=== PATIENT | male | born 1975 | race Caucasian/White ===

== ENCOUNTER 2022-07-27 18:41 | Inpatient (IN) ==
[2022-07-27] MEDS ORDERED: IOPAMIDOL 100 ML BOTTLE IV ONE (18:42)
--- NOTE | 2022-07-27 19:15 | Emergency Department Note ---
HPI General Chief complaint: Fever Stated complaint: fevers Time Seen by Provider: 07/27/22 18:57 Source: EMS and old records reviewed Mode of arrival: EMS Limitations: altered mental status History of Present Illness HPI Narrative: Narrative: This patient presents by EMS from [facility] with a complaint of elevated heart rate and fever. Patient has decreased level of consciousness reported to be nonverbal. This is initially reported to be from traumatic brain injury, however after review of records at this has been identified in the past to be from [place]'s disease. Also noted on review of records the patient has a brother who lives in [place] who based on prior note was going to attempt to obtain power of manager vehicle. Phone number for Christopher is [phone]. Due to the late hour he was not contacted regarding this visit. It is noted on review of records that the patient does have a DNR with limited intervention. This paperwork is not available at this admission, only is noted to have been documented on prior visit. Unfortunately facility notes were not included when the patient was transported. EMS does advise the facility suspects patient may have a urinary tract infection as his urine has been malodorous. No additional information is provided. Related Data Home Medications Medication Instructions Recorded Confirmed aripiprazole 10 mg tablet 10 mg PO .AFTERNOON 01/15/19 02/12/22 aripiprazole 15 mg tablet 15 mg PO QAM 01/15/19 02/12/22 ketoconazole 2 % topical cream 1 applic topical QDAY 01/15/19 02/12/22 lorazepam 2 mg tablet 2 mg PO TID 01/15/19 02/12/22 baclofen 10 mg tablet 10 mg PO BID 02/12/22 02/12/22 docusate sodium 100 mg capsule 100 mg PO BID 02/12/22 02/12/22 haloperidol 2 mg tablet 3 mg PO TID 02/12/22 02/12/22 haloperidol lactate 2 mg/mL oral 3 mg PO QHS PRN Agitation 02/12/22 02/12/22 concentrate hydrocortisone 2.5 % topical cream 1 applic topical QMWF 02/12/22 02/12/22 melatonin 10 mg tablet 10 mg PO HS 02/12/22 02/12/22 omeprazole 20 mg capsule,delayed 20 mg PO QDAY 02/12/22 02/12/22 release zolpidem 5 mg tablet 10 mg PO QHS 02/12/22 02/12/22 Previous Rx's Medication Instructions Recorded acetaminophen 650 mg 650 mg PO Q6 PRN fever #30 tabs 07/05/21 tablet,extended release (Tylenol 8 Hour) Allergies Allergy/AdvReac Type Severity Reaction Status Date / Time No Known Drug Allergies Allergy Verified 07/27/22 18:41 Review of Systems ROS ROS Narrative: Narrative: Unable to complete review of services due to patient being altered [facility] Narrative Patient History Narrative: Narrative: Medical/Surgical/Family History All Active Problems Other infective bursitis, left elbow (Acute) COVID-19 (Acute) Fever (Acute) Sepsis (Acute) Viral illness (Acute) Community acquired pneumonia (Acute) Fever of unknown origin (Acute) Social History Alcohol Intake Frequency: holiday/special occasion only Substance Use: does not use Exam Narrative Narrative: Narrative: Vital signs noted General: mild distress. Skin: Warm. Dry. No rash. Normal color. Eyes: PERRL. Mouth: Membranes dry Cardiovascular: Tachycardia. No murmur. Respiratory: No respiratory distress. Breath sounds equal. No wheezing/rales/rhonchi. Gastrointestinal: Abdomen soft. No tenderness. No distention. Normal bowel sounds. No rebound tenderness or guarding. Extremities: No tenderness. No swelling. No erythema. No edema. Neurological: No focal neurological deficits observed. Patient lethargic. Non responsive to verbal stimulus. General Limitations: altered mental status Course Course Course Narrative: The following orders are placed and reviewed by myself: CBC and CHEM panel are obtained White count is noted to be markedly elevated at 19,500 Lactic acid is below 2 Chest x-ray is without acute changes to my review UA is positive, culture is pending. Of note, the urine is noted to be purulent on catheterization for urine sample. Blood cultures are obtained and the patient is started on Zosyn for urinary tract infection On recheck of vital signs patient is noted to have a fever of 101.6. Patient medicated with IV Tylenol and sepsis is considered. Fluid resuscitation is initiated with sepsis and fluid bolus 30 mils per kilogram. Patient discussed with the hospice service for admission of sepsis related to urinary tract infection Vital Signs Vital signs: Vital Signs Temperature 99.0 F 07/27/22 18:41 Pulse Rate 104 H 07/27/22 18:41 Respiratory Rate 20 07/27/22 18:41 Blood Pressure 109/74 07/27/22 18:41 Pulse Oximetry (%) 97 07/27/22 18:41 Oxygen Delivery Method Room Air 07/27/22 18:41 Temperature 101.0 F H 07/27/22 21:43 Pulse Rate 86 07/27/22 22:46 Respiratory Rate 18 07/27/22 23:13 Blood Pressure 103/62 07/27/22 23:01 Pulse Oximetry (%) 100 07/27/22 22:46 Oxygen Delivery Method Room Air 07/27/22 18:41 MDM MDM Narrative Medical decision making narrative: Narrative: Lab Data 07/27/22 19:16 Labs: Lab Results 07/27/22 07/27/22 07/27/22 Range/Units 18:48 19:16 19:20 WBC 19.5 H (4.5-11.0) K/mcL RBC 5.21 (4.63-6.08) M/mcL Hgb 14.3 (13.7-17.5) g/dL Hct 43.3 (40.1-51.0) % POC Hct (41-55) MCV 83.1 (80.0-100.0) fL MCH 27.4 (26.0-34.0) pg MCHC 33.0 (31.0-36.0) g/dL RDW 13.2 (11.5-14.5) % Plt Count 270 (140-440) K/mcL MPV 9.5 (8.8-12.5) fL Immature Gran % (Auto) 0.4 (0.0-0.5) % Neut % (Auto) 80.0 H (38.0-78.0) % Lymph % (Auto) 12.6 L (15.5-49.0) % [place] % (Auto) 6.5 (1.0-12.0) % Eos % (Auto) 0.2 (0.0-7.0) % Baso % (Auto) 0.3 (0.0-2.0) % Lymph # (Auto) 2.46 (1.50-4.80) K/mcL [place] # (Auto) 1.26 H (0.10-0.90) K/mcL Eos # (Auto) 0.03 (0.00-0.70) K/mcL Baso # (Auto) 0.05 (0.00-0.30) K/mcL Immature Gran # 0.07 H (0.00-0.05) K/mcl Absolute Neutrophils 15.63 H (1.80-8.00) K/mcL POC VBG pH 7.41 (7.32-7.42) POC VBG pCO2 at Temp 40.3 L (41-51) POC VBG pO2 25 (25-40) POC VBG HCO3 25.7 (24-28) POC VBG Total CO2 27.0 (25-29) POC Venous O2 Sat 47.0 (40-70) POC VBG Base Excess 1.0 (-2-2) VBG Lactic Acid 0.6 (0.5-2) POC Sodium (133-145) POC Potassium (3.3-5.1) POC Chloride (96-108) POC Total CO2 (22-30) POC BUN (6-20) POC Creatinine (0.6-1.2) POC Glucose (70-105) POC WB Ioniz Calcium (1.16-1.32) Urine Color Yellow Urine Appearance Hazy A (Clear) Urine pH 5.0 (5.0-9.0) Ur Specific [place] 1.033 (1.000-1.035) Urine Protein 100 A (Negative) mg/dL Urine Glucose (UA) Negative (Negative) mg/dL Urine Ketones 20 A (Negative) mg/dL Urine Occult Blood 0.20 (Negative) mg/dL Urine Nitrate Pos A (Negative) Urine Bilirubin Negative (Negative) mg/dL Urine Urobilinogen 2.0 A mg/dL Ur Leukocyte Esterase 250 A (Negative) /uL Urine RBC 4 H (0-3) /hpf Urine WBC 125 H (0-4) /hpf Ur Squamous Epith Cells 0 (0-4) /hpf Urine Bacteria Many A (0) /hpf Ur Culture Indicated? yes 07/27/22 Range/Units 20:24 WBC (4.5-11.0) K/mcL RBC (4.63-6.08) M/mcL Hgb (13.7-17.5) g/dL Hct (40.1-51.0) % POC Hct 45.0 (41-55) MCV (80.0-100.0) fL MCH (26.0-34.0) pg MCHC (31.0-36.0) g/dL RDW (11.5-14.5) % Plt Count (140-440) K/mcL MPV (8.8-12.5) fL Immature Gran % (Auto) (0.0-0.5) % Neut % (Auto) (38.0-78.0) % Lymph % (Auto) (15.5-49.0) % [place] % (Auto) (1.0-12.0) % Eos % (Auto) (0.0-7.0) % Baso % (Auto) (0.0-2.0) % Lymph # (Auto) (1.50-4.80) K/mcL [place] # (Auto) (0.10-0.90) K/mcL Eos # (Auto) (0.00-0.70) K/mcL Baso # (Auto) (0.00-0.30) K/mcL Immature Gran # (0.00-0.05) K/mcl Absolute Neutrophils (1.80-8.00) K/mcL POC VBG pH (7.32-7.42) POC VBG pCO2 at Temp (41-51) POC VBG pO2 (25-40) POC VBG HCO3 (24-28) POC VBG Total CO2 (25-29) POC Venous O2 Sat (40-70) POC VBG Base Excess (-2-2) VBG Lactic Acid (0.5-2) POC Sodium 137 (133-145) POC Potassium 3.6 (3.3-5.1) POC Chloride 99 (96-108) POC Total CO2 27.0 (22-30) POC BUN 12 (6-20) POC Creatinine 1.1 (0.6-1.2) POC Glucose 106 H (70-105) POC WB Ioniz Calcium 1.10 L (1.16-1.32) Urine Color Urine Appearance (Clear) Urine pH (5.0-9.0) Ur Specific [place] (1.000-1.035) Urine Protein (Negative) mg/dL Urine Glucose (UA) (Negative) mg/dL Urine Ketones (Negative) mg/dL Urine Occult Blood (Negative) mg/dL Urine Nitrate (Negative) Urine Bilirubin (Negative) mg/dL Urine Urobilinogen mg/dL Ur Leukocyte Esterase (Negative) /uL Urine RBC (0-3) /hpf Urine WBC (0-4) /hpf Ur Squamous Epith Cells (0-4) /hpf Urine Bacteria (0) /hpf Ur Culture Indicated? Discharge Plan Patient/Caregiver Discharge Instructions Pt seen by J[employer]RNAL[employer] INTERN/PA only: Yes Prescriptions: No Action aripiprazole 15 mg tablet 15 mg PO QAM aripiprazole 10 mg tablet 10 mg PO .AFTERNOON lorazepam 2 mg tablet 2 mg PO TID ketoconazole 2 % cream 1 applic TOPICAL QDAY acetaminophen [Tylenol 8 Hour] 650 mg tablet extended release 650 mg PO Q6 PRN (Reason: fever) Qty: 30 0RF baclofen 10 mg Tablet 10 mg PO BID docusate sodium 100 mg Capsule 100 mg PO BID omeprazole 20 mg Capsule,Delayed Release(Dr/Ec) 20 mg PO QDAY hydrocortisone 2.5 % Cream 1 applic TOPICAL QMWF zolpidem 5 mg Tablet 10 mg PO QHS haloperidol 2 mg Tablet 3 mg PO TID melatonin 10 mg Tablet 10 mg PO HS haloperidol lactate [Haloperidol Intensol] 2 mg/mL Concentrate 3 mg PO QHS PRN (Reason: Agitation)
[2022-07-27 19:27] LABS: Appearance,Urine HAZY (Clear); Bacteria,Urine MANY /hpf (0); Bilirubin,Urine Negative (Negative); Color,Urine Yellow; Culture Indicated,Urine yes; Glucose,Urine (UA) Negative (Negative); Ketones,Urine 20 mg/dL (Negative); Leukocyte Esterase,Urine 250 /uL (Negative); Nitrate,Urine POS (Negative); Protein,Urine 100 mg/dL (Negative); Specific Gravity,Urine 1.033 (1.000-1.035); Urine RBC 4 /hpf (0-3); Urine Squamous Epithelial Cell 0 /hpf (0-4); Urine WBC 125 /hpf (0-4)
[2022-07-27 19:47] LABS: Basophils # (Auto) 0.05 K/mcL (0.00-0.30); Basophils % (Auto) 0.3 % (0.0-2.0); Eosinophils # (Auto) 0.03 K/mcL (0.00-0.70); Eosinophils % (Auto) 0.2 % (0.0-7.0); Hematocrit 43.3 % (40.1-51.0); Hemoglobin 14.3 g/dL (13.7-17.5); Lymphocytes # (Auto) 2.46 K/mcL (1.50-4.80); Lymphocytes % (Auto) 12.6 % (15.5-49.0); Mean Cell Volume 83.1 fL (80.0-100.0); Mean Platelet Volume 9.5 fL (8.8-12.5); Monocytes # (Auto) 1.26 K/mcL (0.10-0.90); Monocytes % (Auto) 6.5 % (1.0-12.0); Platelet Count 270 K/mcL (140-440); RBC 5.21 M/mcL (4.63-6.08); Red Cell Distribution Width 13.2 % (11.5-14.5); WBC 19.5 K/mcL (4.5-11.0)
[2022-07-27 20:29] LABS: POC Calcium, Ionized 1.1 (1.16-1.32); POC Creatinine 1.1 (0.6-1.2); POC Potassium 3.6 (3.3-5.1)
[2022-07-27] MEDS ORDERED: 0.9 % SODIUM CHLORIDE 2,330 ML IV ONE (20:41)
[2022-07-27] MEDS ORDERED: cefTRIAXone 2 GM in DEXTROSE 5% IN WATER 50 ML IV ONE (20:42)
[2022-07-27] MEDS ORDERED: ACETAMINOPHEN 1,000 MG/100 ML BAG IV ONE (22:29)
--- NOTE | 2022-07-28 02:13 | XRay Report ---
CLINICAL INFORMATION: Fever COMPARISON: 07/24/2022 TECHNIQUE: Portable FINDINGS: The heart size, mediastinum and pulmonary vessels are unremarkable. The lungs are clear. There are no effusions. The bones and soft tissues are within normal limits. IMPRESSION: Normal chest. Interpreted and Authenticated by: Johnny Condon 07/28/22
--- NOTE | 2022-07-28 02:43 | Cat Scan Report ---
CLINICAL INFORMATION: Fever COMPARISON: None. TECHNIQUE: Following enteric contrast, 80 cc of Isovue-370 were injected intravenously, and 60 seconds later, 0.625 mm helical slices were obtained from the mid heart through the subtrochanteric regions. Following reconstruction, 2.5 mm sagittal, coronal and axial reformatted images were processed and reviewed at bone, lung and soft tissue windows. Five minutes later, 0.625 mm helical slices were obtained from the mid heart through the kidneys and viewed at soft tissue windows.The exam was performed using radiation dose optimization techniques including, but not limited to, automated exposure control, adjustment of the mA and/or kV according to patient size and use of iterative reconstruction technique. FINDINGS: The lung bases show subsegmental atelectasis. No effusions. The visualized heart is grossly normal. Abdominal images show the gallbladder and bile ducts, liver, both kidneys, adrenal glands, spleen, pancreas and aorta, including aortic branches, are normal in size, configuration and attenuation without focal lesion. There is no free air, free fluid or adenopathy. Pelvic images show mild prostate enlargement (5.6 x 3.3 cm). In addition, there is patchy inhomogeneous enhancement of the central zone with edema in the peripheral zone suggesting prostatitis. There is also moderate diffuse wall thickening of urinary bladder suggesting cystitis.. The stomach, small bowel, appendix region and large bowel are grossly normal. Bone windows show no osseous abnormality IMPRESSION: Mild prostate enlargement inhomogeneous enhancement suggesting prostatitis. Diffuse wall thickening urinary bladder suggests the possibility of cystitis. Please correlate with urinalysis and also prostate tenderness on digital rectal exam. Interpreted and Authenticated by: Johnny Condon 07/28/22
[2022-07-28] MEDS ORDERED: ONDANSETRON 4 MG/2 ML VIAL IV PRN (08:05)
[2022-07-28] MEDS ORDERED: POLYETHYLENE GLYCOL 3350 17 GM PACKET PO PRN (08:05)
[2022-07-28] MEDS ORDERED: MAGNESIUM SULFATE 2 GM/50 ML BAG IV PRN (08:05)
[2022-07-28] MEDS ORDERED: POTASSIUM CHLORIDE 40 MEQ in DEXTROSE 5% IN WATER 500 ML IV PRN (08:05)
[2022-07-28] MEDS ORDERED: POTASSIUM CHLORIDE 20 MEQ TABLET PO PRN ×2 (08:05)
[2022-07-28] MEDS ORDERED: SENNOSIDES 1 TABLET PO PRN (08:05)
[2022-07-28] MEDS ORDERED: IPRATROPIUM/ALBUTEROL 3 ML AMPUL.NEB NEB PRN (08:05)
--- NOTE | 2022-07-28 08:05 | Internal Med History&Physical ---
HPI History of Present Illness Patient information: Note initiated : 07/28/22 at 7:59 am Service Date, if different from initiated Date: [] Patient: Devonte Vizcaino 46 y/o M admitted on 07/28/22 for fevers. Chief Complaint: [] History of present illness: Mr. 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 Presents from [facility]. Also reported to have decreased level of consciousness. Patient has a history of traumatic brain injury and is essentially nonverbal at baseline. Also reported that his urine is malodorous. In the ED his work-up was positive for urinary tract infection with sepsis. Patient was started on IV antibiotics and IV fluids. He was tachycardic in the ED. He had a white blood cell count of 19,000. He also developed a fever of 101.6. Patient is still quite altered compared to baseline. Review of systems: Unable to obtain as patient is nonverbal and is essentially baseline PHYSICAL EXAM General: Alert, Awake, No acute Distress Eyes/N/T: EOMI, no scleral icterus, PERRL,dry MM Head/Neck: neck supple, full ROM, normocephalic atraumatic CV: Tachycardic but regular, No murmurs, normal s1/s2 Pulm: Clear b/l, no wheezing/rhonchi/rales, no respiratory distress Abd: soft, nontender, +BS x4 Ext: no clubbing/cyanosis/edema, nontender Neuro: Alert, makes eye contact, follows some simple comands, nonverbal, moves UE's spontaneously, does not move LE's Psychiatric: Skin: warm/dry, normal color PFSH PFSH All Active Problems (Updated 07/28/22 @ 00:44 by Background Datucker) Other infective bursitis, left elbow (Acute) COVID-19 (Acute) Fever (Acute) Sepsis (Acute) Viral illness (Acute) Community acquired pneumonia (Acute) Fever of unknown origin (Acute) Sepsis (Acute) Acute UTI (Acute) Social History (Updated 01/15/19 @ 12:38 by Chandrika Calvin PA-C) smoking status: Current some day smoker alcohol intake frequency: holiday/special occasion only substance use type: does not use MEDS/ALLERGIES Home Medications and Allergies Home Medications Medication Instructions Recorded Confirmed Type aripiprazole 10 mg tablet 10 mg PO .AFTERNOON 01/15/19 07/28/22 History aripiprazole 15 mg tablet 15 mg PO QAM 01/15/19 07/28/22 History ketoconazole 2 % topical cream 1 applic topical QDAY 01/15/19 07/28/22 History lorazepam 2 mg tablet 2 mg PO TID 01/15/19 07/28/22 History acetaminophen 650 mg 650 mg PO Q6 PRN fever #30 tabs 07/05/21 07/28/22 Rx tablet,extended release (Tylenol 8 Hour) baclofen 10 mg tablet 10 mg PO BID 02/12/22 07/28/22 History docusate sodium 100 mg capsule 100 mg PO BID 02/12/22 07/28/22 History haloperidol 2 mg tablet 3 mg PO TID 02/12/22 07/28/22 History haloperidol lactate 2 mg/mL oral 3 mg PO QHS PRN Agitation 02/12/22 07/28/22 History concentrate hydrocortisone 2.5 % topical cream 1 applic topical QMWF 02/12/22 07/28/22 History melatonin 10 mg tablet 10 mg PO HS 02/12/22 07/28/22 History omeprazole 20 mg capsule,delayed 20 mg PO QAMAC 02/12/22 07/28/22 History release zolpidem 5 mg tablet 10 mg PO QHS 02/12/22 07/28/22 History guaifenesin 100 mg/5 mL oral 100 - 200 mg PO Q4H PRN Cough 07/28/22 07/28/22 History liquid (Tussin Mucus-Chest Congestion) trazodone 100 mg tablet 200 mg PO QHS 07/28/22 07/28/22 History Allergies Allergy/AdvReac Type Severity Reaction Status Date / Time No Known Drug Allergies Allergy Verified 07/27/22 18:41 EXAM Constitutional Vitals: Temp Pulse Resp BP Pulse Ox O2 Del Method 99.4 F H 81 19 91/66 99 Room Air 07/28/22 04:00 07/28/22 06:00 07/28/22 06:00 07/28/22 06:00 07/28/22 06:00 07/28/22 04:41 DATA Data Completed and Pending Labs: Labs from last 24 hours 07/27/22 07/27/22 07/27/22 20:24 19:20 19:16 WBC 19.5 H RBC 5.21 Hgb 14.3 Hct 43.3 POC Hct 45.0 MCV 83.1 MCH 27.4 MCHC 33.0 RDW 13.2 Plt Count 270 MPV 9.5 Immature Gran % (Auto) 0.4 Neut % (Auto) 80.0 H Lymph % (Auto) 12.6 L [place] % (Auto) 6.5 Eos % (Auto) 0.2 Baso % (Auto) 0.3 Lymph # (Auto) 2.46 [place] # (Auto) 1.26 H Eos # (Auto) 0.03 Baso # (Auto) 0.05 Immature Gran # 0.07 H Absolute Neutrophils 15.63 H POC VBG pH 7.41 POC VBG pCO2 at Temp 40.3 L POC VBG pO2 25 POC VBG HCO3 25.7 POC VBG Total CO2 27.0 POC Venous O2 Sat 47.0 POC VBG Base Excess 1.0 VBG Lactic Acid 0.6 POC Sodium 137 POC Potassium 3.6 POC Chloride 99 POC Total CO2 27.0 POC BUN 12 POC Creatinine 1.1 POC Glucose 106 H POC WB Ioniz Calcium 1.10 L Urine Color Urine Appearance Urine pH Ur Specific [place] Urine Protein Urine Glucose (UA) Urine Ketones Urine Occult Blood Urine Nitrate Urine Bilirubin Urine Urobilinogen Ur Leukocyte Esterase Urine RBC Urine WBC Ur Squamous Epith Cells Urine Bacteria Ur Culture Indicated? 07/27/22 18:48 WBC RBC Hgb Hct POC Hct MCV MCH MCHC RDW Plt Count MPV Immature Gran % (Auto) Neut % (Auto) Lymph % (Auto) [place] % (Auto) Eos % (Auto) Baso % (Auto) Lymph # (Auto) [place] # (Auto) Eos # (Auto) Baso # (Auto) Immature Gran # Absolute Neutrophils POC VBG pH POC VBG pCO2 at Temp POC VBG pO2 POC VBG HCO3 POC VBG Total CO2 POC Venous O2 Sat POC VBG Base Excess VBG Lactic Acid POC Sodium POC Potassium POC Chloride POC Total CO2 POC BUN POC Creatinine POC Glucose POC WB Ioniz Calcium Urine Color Yellow Urine Appearance Hazy A Urine pH 5.0 Ur Specific [place] 1.033 Urine Protein 100 A Urine Glucose (UA) Negative Urine Ketones 20 A Urine Occult Blood 0.20 Urine Nitrate Pos A Urine Bilirubin Negative Urine Urobilinogen 2.0 A Ur Leukocyte Esterase 250 A Urine RBC 4 H Urine WBC 125 H Ur Squamous Epith Cells 0 Urine Bacteria Many A Ur Culture Indicated? yes A/P Narrative A/P Narrative: A: *UTI: *Sepsis(tachycardia/fever/leukocytosis): *Encephalopathy acute on chronic: 2/2 above *Generalized weakness/deconditioning/debility: *Tracie's disease: *Generalized weakness/deconditioning/debility: Patient wheelchair-bound at baseline *Hypophosphatemia: *Bipolar d/o: *GERD: P: -IV antibiotics, pending BC/UC -IVF -monitor uop, renal fxn, trend and replace eletrolytes -[place] for accurate i/o -f/u lab work -cont home baclofen/psych -PT/OT -CM for placement needs -ppx: Lovenox / home ppi DNR/DNI Time Spent With Patient Time: Total time spent is greater than 50% in coordination of care (as documented) at patient's floor/unit and/or counseling patient: Initial: Total time with patient: 75 - 90 minutes QUALITY VTE Deep Vein Thrombosis/Pulmonary Embolism Present on Admission: No
[2022-07-28] MEDS ORDERED: cefTRIAXone 1 GM in DEXTROSE 5% IN WATER 50 ML IV SCH (08:15)
[2022-07-28] MEDS ORDERED: 0.9 % SODIUM CHLORIDE 1,000 ML IV SCH (08:15)
[2022-07-28] MEDS: DOCUSATE SODIUM 100 MG CAPSULE PO SCH ×2 (08:29→20:14)
[2022-07-28] MEDS: cefTRIAXone 1 GM VIAL IV SCH (08:29)
[2022-07-28] MEDS: ACETAMINOPHEN 325 MG TABLET PO PRN (08:29)
[2022-07-28 09:10] LABS: Hemoglobin 13.3 g/dL (13.7-17.5); Mean Cell Volume 83.8 fL (80.0-100.0); Mean Corpuscular HGB Conc 32.4 g/dL (31.0-36.0); Mean Platelet Volume 9.4 fL (8.8-12.5); Platelet Count 260 K/mcL (140-440); RBC 4.89 M/mcL (4.63-6.08); Red Cell Distribution Width 13.2 % (11.5-14.5); WBC 17.7 K/mcL (4.5-11.0)
[2022-07-28 09:32] LABS: ALT/SGPT 15 U/L (<40); AST/SGOT 50 U/L (<40); Albumin 3.1 gm/dL (3.2-5.2); Alkaline Phosphatase 76 U/L (39-117); Bilirubin,Direct < 0.2 mg/dL (0-0.3); Bilirubin,Total 0.5 mg/dL (0.1-1.0); Blood Urea Nitrogen 10 mg/dL (6-20); Calcium 7.9 mg/dL (8.6-10.4); Carbon Dioxide 25 mmol/L (22-30); Chloride 104 mmol/L (96-108); Globulin 3.2 gm/dL (2.2-3.7); Glomerular Filtration Rate 108; Glucose 91 mg/dL (70-105); Lactate Dehydrogenase 181 U/L (135-225); Phosphorous 1.6 mg/dL (2.5-4.5); Triglycerides 42 mg/dL (<150); Uric Acid 3.2 mg/dL (2.5-8.0)
[2022-07-28 09:46] LABS: Eosinophils % (Manual) 2 % (0-7); Lymphocytes % 8 % (15-49); Monocytes % (Manual) 3 % (1-12); Platelet Estimate NORMAL (Normal); RBC Morphology NORMAL (Normal); Segmented Neutrophils % 87 % (38-78)
[2022-07-28] MEDS: NEUTRA PHOS 1 PACKET PO SCH ×2 (10:21→20:13)
[2022-07-28] MEDS: PHOSPHORUS 250 MG TABLET PO SCH ×2 (10:22→20:14)
[2022-07-28] MEDS: BACLOFEN 10 MG TABLET PO SCH ×2 (10:22→20:13)
[2022-07-28] MEDS: LORazepam 1 MG TABLET PO SCH ×3 (10:22→20:13)
[2022-07-28] MEDS: ARIPIPRAZOLE 5 MG TABLET PO SCH ×2 (10:22→14:43)
[2022-07-28] MEDS: HALOPERIDOL 1 MG TABLET PO SCH ×2 (14:43→20:14)
[2022-07-28] MEDS: 0.9 % SODIUM CHLORIDE 10 ML SYRINGE IV SCH ×2 (14:43→20:57)
[2022-07-28] MEDS: ZOLPIDEM 5 MG TABLET PO SCH (20:13)
[2022-07-28] MEDS: traZODone HCL 100 MG TABLET PO SCH (20:13)
[2022-07-28] MEDS: MELATONIN 3 MG TABLET PO SCH (20:14)
[2022-07-28] MEDS ORDERED: HALOPERIDOL 1 MG TABLET PO PRN (21:00)
[2022-07-29] MEDS: 0.9 % SODIUM CHLORIDE 10 ML SYRINGE IV SCH ×3 (06:13→20:32)
[2022-07-29 07:10] LABS: Basophils # (Auto) 0.05 K/mcL (0.00-0.30); Basophils % (Auto) 0.5 % (0.0-2.0); Eosinophils # (Auto) 0.27 K/mcL (0.00-0.70); Eosinophils % (Auto) 2.7 % (0.0-7.0); Hematocrit 42.7 % (40.1-51.0); Hemoglobin 13.8 g/dL (13.7-17.5); Lymphocytes # (Auto) 1.48 K/mcL (1.50-4.80); Lymphocytes % (Auto) 14.8 % (15.5-49.0); Mean Cell Volume 86.4 fL (80.0-100.0); Mean Corpuscular HGB Conc 32.3 g/dL (31.0-36.0); Mean Platelet Volume 9.7 fL (8.8-12.5); Neutrophils % (Auto) 75.7 % (38.0-78.0); Platelet Count 227 K/mcL (140-440); RBC 4.94 M/mcL (4.63-6.08); Red Cell Distribution Width 13.2 % (11.5-14.5)
--- NOTE | 2022-07-29 07:38 | Internal Med Progress Note ---
SUBJECTIVE Subjective Patient information: Note initiated : 07/29/22 at 7:35 am Service Date, if different from initiated Date: [] Patient: Devonte Vizcaino 46 y/o M admitted on 07/28/22 for fevers. Chief Complaint: [] Interval history: History of present illness: Mr. Vizcaino is a 46 year old M Male with [place]'s disease presents to the ED with fevers tachycardia and altered mental status. Presents from [facility]. Also reported to have decreased level of consciousness. Patient has a history of traumatic brain injury and is essentially nonverbal at baseline. Also reported that his urine is malodorous. In the ED his work-up was positive for urinary tract infection with sepsis. Patient was started on IV antibiotics and IV fluids. He was tachycardic in the ED. He had a white blood cell count of 19,000. He also developed a fever of 101.6. Patient is still quite altered compared to baseline. 07/29 No overnight events. Patient nonverbal. Last fever was yesterday morning with max temperatures overnight at 99.5. Leukocytosis resolved. Hypophosphatemia. Review of systems: Unable to obtain as patient is nonverbal and is essentially baseline PHYSICAL EXAM General: Alert, Awake, No acute Distress Eyes/N/T: EOMI, no scleral icterus, Head/Neck: neck supple, full ROM, CV: Mildly tachycardic but regular, No murmurs, Pulm: Clear b/l, no wheezing/rhonchi/rales, no respiratory distress Abd: soft, nontender, +BS x4 Ext: no clubbing/cyanosis/edema, nontender Neuro: Alert, makes eye contact, follows some simple comands, nonverbal, moves UE's spontaneously, does not move LE's Psychiatric: Skin: warm/dry, normal color Constitutional Vitals: Vital Signs Temp Pulse Resp BP Pulse Ox O2 Del Method 99.5 F H 81 21 121/89 93 Room Air 07/29/22 03:42 07/28/22 19:52 07/29/22 03:42 07/28/22 19:52 07/28/22 19:52 07/28/22 19:52 Period Temp Pulse Resp BP Sys/Draper Pulse Ox O2 Del Method O2 Flow Rate Last 24 Hr 98.9 F-101.4 F 65-99 13-25 98-122/64-89 92-96 Room Air Intake and Output 07/28/22 07/29/22 07/29/22 19:59 03:59 11:59 Intake Total 120 1000 Output Total 263 925 Balance -143 75 Weight 76.612 kg Intake & Output: Intake & Output 07/28/22 07/29/22 07/29/22 19:59 03:59 11:59 Intake Total 120 1000 Output Total 263 925 Balance -143 75 Weight 76.612 kg Intake: IV 1000 Sodium Chloride 0.9% 1,000 ml @ 1000 75 mls/hr IV .[id number] [facility] Rx#: [id number] Oral 120 Output: Urine Catheter Amount 263 250 Void Amount 675 Other: Meal Lunch Percent of Meal Consumed 50% Feeding Ability Total Assistance Urine Appearance Cloudy Clear Uretheral ([place]) Clear Urine Color [place] Yellow Uretheral ([place]) Yellow Urine Odor Normal Normal OBJ DATA Labs 07/29/22 05:47 07/28/22 08:36 Labs: Abnormal Lab Results 07/29/22 07/28/22 07/28/22 05:47 08:36 08:36 WBC 17.7 H Hgb 13.3 L Neut % (Auto) Lymph % (Auto) 14.8 L Lymph # (Auto) 1.48 L [place] # (Auto) Seg Neutrophils % 87 H Lymphocytes % 8 L Immature Gran # Absolute Neutrophils POC VBG pCO2 at Temp Anion Gap 7.0 L POC Glucose Calcium 7.9 L POC WB Ioniz Calcium Phosphorus 1.6 L AST 50 H Albumin 3.1 L Urine Appearance Urine Protein Urine Ketones Urine Nitrate Urine Urobilinogen Ur Leukocyte Esterase Urine RBC Urine WBC Urine Bacteria 07/27/22 07/27/22 07/27/22 20:24 19:20 19:16 WBC 19.5 H Hgb Neut % (Auto) 80.0 H Lymph % (Auto) 12.6 L Lymph # (Auto) [place] # (Auto) 1.26 H Seg Neutrophils % Lymphocytes % Immature Gran # 0.07 H Absolute Neutrophils 15.63 H POC VBG pCO2 at Temp 40.3 L Anion Gap POC Glucose 106 H Calcium POC WB Ioniz Calcium 1.10 L Phosphorus AST Albumin Urine Appearance Urine Protein Urine Ketones Urine Nitrate Urine Urobilinogen Ur Leukocyte Esterase Urine RBC Urine WBC Urine Bacteria 07/27/22 18:48 WBC Hgb Neut % (Auto) Lymph % (Auto) Lymph # (Auto) [place]cdonald # (Auto) Seg Neutrophils % Lymphocytes % Immature Gran # Absolute Neutrophils POC VBG pCO2 at Temp Anion Gap POC Glucose Calcium POC WB Ioniz Calcium Phosphorus AST Albumin Urine Appearance Hazy A Urine Protein 100 A Urine Ketones 20 A Urine Nitrate Pos A Urine Urobilinogen 2.0 A Ur Leukocyte Esterase 250 A Urine RBC 4 H Urine WBC 125 H Urine Bacteria Many A Meds: Medications Acetaminophen (Acetaminophen 325 Mg Tablet) 650 mg PO Q6HP PRN; Protocol PRN Reason: Per Pain Protocol/Fever > 101 Last Admin: 07/28/22 08:29 Dose: 650 mg Albuterol/Ipratropium (Ipratropium/Albuterol 3 Ml Ampul.Neb) 3 ml NEB Q4HP PRN PRN Reason: Shortness Of Breath Baclofen (Baclofen 10 Mg Tablet) [address] [facility] Last Admin: 07/28/22 20:13 Dose: 10 mg Ceftriaxone Sodium (Ceftriaxone 1 Gm Vial) [address] [facility] Last Admin: 07/28/22 08:29 Dose: 1 gm Docusate Sodium (Docusate Sodium 100 Mg Capsule) [address] [facility] Last Admin: 07/28/22 20:14 Dose: 100 mg Haloperidol (Haloperidol 1 Mg Tablet) [address] [facility] Last Admin: 07/28/22 20:14 Dose: 3 mg Haloperidol (Haloperidol 1 Mg Tablet) 3 mg PO HSP PRN PRN Reason: Agitation Potassium Chloride 40 meq/ (Dextrose) 520 mls @ 130 mls/hr IV UD PRN PRN Reason: Potassium < 3 Magnesium Sulfate (Magnesium Sulfate) 2 gm in 50 mls @ 50 mls/hr IV UD PRN PRN Reason: Magnesium </= 1.6 Lorazepam (Lorazepam 1 Mg Tablet) [address] [facility] Last Admin: 07/28/22 20:13 Dose: 1 mg Melatonin (Melatonin 3 Mg Tablet) [address] [facility] Last Admin: 07/28/22 20:14 Dose: 9 mg Omeprazole (Omeprazole 20 Mg Capsule) [address] [facility] Ondansetron HCl (Ondansetron 4 Mg/2 Ml Vial) 4 mg IV Q4HP PRN PRN Reason: Nausea And Vomiting Polyethylene Glycol (Polyethylene Glycol 3350 17 Gm Packet) 17 gm PO DAILYP PRN PRN Reason: Constipation Potassium Chloride (Potassium Chloride 20 Meq Tablet) 40 meq PO UD PRN PRN Reason: Potssium is 3-3.5 Potassium Chloride (Potassium Chloride 20 Meq Tablet) 40 meq PO UD PRN PRN Reason: Potassium < 3 Senna (Sennosides 1 Tablet) 2 tab PO DAILYP PRN PRN Reason: Constipation Sodium Chloride (0.9 % Sodium Chloride 10 Ml Syringe) [address] [facility] Last Admin: 07/29/22 06:13 Dose: 10 ml Trazodone HCl (Trazodone Hcl 100 Mg Tablet) [address] [facility] Last Admin: 07/28/22 20:13 Dose: 200 mg Zolpidem Tartrate (Zolpidem 5 Mg Tablet) [address] [facility] Last Admin: 07/28/22 20:13 Dose: 10 mg A/P Narrative A/P Narrative: A: *UTI( )complicated: *Sepsis(tachycardia/fever/leukocytosis): -fever curve improving, leukcytosis improving *Encephalopathy acute on chronic: 2/2 above *Graton's disease: *Generalized weakness/deconditioning/debility: Patient wheelchair-bound at baseline *Hypophosphatemia: *Bipolar d/o: *GERD: P: -IV antibiotics, pending BC/UC -IVF d.c -monitor uop, renal fxn, trend and replace eletrolytes -[place] for accurate i/o -monitor cbc/chem -cont home baclofen/psych -PT/OT -CM for placement needs -ppx: Lovenox / home ppi Time Spent With Patient Time: Total time spent is greater than 50% in coordination of care (as documented) at patient's floor/unit and/or counseling patient: Subsequent: Total time with patient: 35 - 49 minutes QUALITY VTE Deep Vein Thrombosis/Pulmonary Embolism Present on Admission: No
[2022-07-29 07:47] LABS: ALT/SGPT 15 U/L (<40); AST/SGOT 36 U/L (<40); Albumin 3.1 gm/dL (3.2-5.2); Albumin/Globulin Ratio 0.9 (1.0-2.3); Alkaline Phosphatase 84 U/L (39-117); Bilirubin,Direct < 0.2 mg/dL (0-0.3); Bilirubin,Total 0.4 mg/dL (0.1-1.0); Blood Urea Nitrogen 9 mg/dL (6-20); Calcium 8.2 mg/dL (8.6-10.4); Carbon Dioxide 25 mmol/L (22-30); Chloride 103 mmol/L (96-108); Globulin 3.3 gm/dL (2.2-3.7); Glomerular Filtration Rate 114; Glucose 94 mg/dL (70-105); Lactate Dehydrogenase 210 U/L (135-225); Phosphorous 2.2 mg/dL (2.5-4.5); Triglycerides 68 mg/dL (<150)
[2022-07-29] MEDS: OMEPRAZOLE 20 MG CAPSULE PO SCH (07:58)
[2022-07-29] MEDS: cefTRIAXone 1 GM VIAL IV SCH (10:06)
[2022-07-29] MEDS: NEUTRA PHOS 1 PACKET PO SCH ×2 (10:06→20:30)
[2022-07-29] MEDS: LORazepam 1 MG TABLET PO SCH ×3 (10:07→20:31)
[2022-07-29] MEDS: PHOSPHORUS 250 MG TABLET PO SCH ×2 (10:07→20:30)
[2022-07-29] MEDS: HALOPERIDOL 1 MG TABLET PO SCH ×3 (10:07→20:31)
[2022-07-29] MEDS: DOCUSATE SODIUM 100 MG CAPSULE PO SCH ×2 (10:07→20:31)
[2022-07-29] MEDS: ARIPIPRAZOLE 5 MG TABLET PO SCH ×2 (10:07→14:31)
[2022-07-29] MEDS: BACLOFEN 10 MG TABLET PO SCH ×2 (10:08→20:31)
--- NOTE | 2022-07-29 11:52 | Discharge Summary ---
Discharge Provider Provider IMPORTANT FOLLOW-UP INFORMATION FOR PCP: Patient information: Note initiated : 07/29/22 at 11:50 am Service Date, if different from initiated Date: [] Patient: Devonte Vizcaino 46 y/o M admitted on 07/28/22 for fevers. Chief Complaint: [] Date of admission: 07/28/22 08:38 Discharge date: 07/30/22 Primary care physician: PCP No Consults: 07/27/22 Consult to Physician [CONS] Stat Comment: Consulting Provider: Eddie Myers Reason For Exam: Physician to Consult COURSE Hospital Course Hospital course: Interval history: History of present illness: Mr. Vizcaino is a 46 year old M Male with [place]'s disease presents to the ED with fevers tachycardia and altered mental status. Presents from [facility]. Also reported to have decreased level of consciousness. Patient has a history of traumatic brain injury and is essentially nonverbal at baseline. Also reported that his urine is malodorous. In the ED his work-up was positive for urinary tract infection with sepsis. Patient was started on IV antibiotics and IV fluids. He was tachycardic in the ED. He had a white blood cell count of 19,000. He also developed a fever of 101.6. Patient is still quite altered compared to baseline. 3/5 No overnight events. Patient nonverbal. Last fever was yesterday morning with max temperatures overnight at 99.5. Leukocytosis resolved. Hypophosphatemia. 3/6 Patient verbalized "breakfast" today but spoke no other words. Seems to have more energy and alertness. Urine culture came back E. coli pansensitive. A: *UTI(E. coli) complicated: *Sepsis: *Encephalopathy acute on chronic: 2/2 above *Tracie's disease: *Generalized weakness/deconditioning/debility: Patient wheelchair-bound at baseline *Hypophosphatemia: *Bipolar d/o: *GERD: P: - antibiotics, Discharge diagnosis: Complicated UTI sepsis Encephalopathy Secondary discharge diagnosis: Generalized weakness deconditioning debility [place]'s disease bipolar GERD Time Spent with Patient Time attestation: Total time spent providing and/or coordinating discharge services: Time spent: Greater than 30 minutes EXAM Constitutional Vitals: Temp Pulse Resp BP Pulse Ox O2 Del Method 97.5 F 95 H 20 135/88 95 Room Air 03/05/23 07:44 07/29/22 07:44 07/29/22 07:44 07/29/22 07:44 07/29/22 07:44 07/29/22 07:44 Discharge Data Data Completed and Pending Labs on day of discharge: Labs from last 24 hours 07/29/22 07/29/22 05:47 05:47 WBC 10.0 RBC 4.94 Hgb 13.8 Hct 42.7 MCV 86.4 MCH 27.9 MCHC 32.3 RDW 13.2 Plt Count 227 MPV 9.7 Immature Gran % (Auto) 0.3 Neut % (Auto) 75.7 Lymph % (Auto) 14.8 L [place] % (Auto) 6.0 Eos % (Auto) 2.7 Baso % (Auto) 0.5 Lymph # (Auto) 1.48 L [place] # (Auto) 0.60 Eos # (Auto) 0.27 Baso # (Auto) 0.05 Immature Gran # 0.03 Absolute Neutrophils 7.55 Sodium 137 Potassium 3.6 Chloride 103 Carbon Dioxide 25 Anion Gap 9.0 BUN 9 Creatinine 0.7 GFR Calculation 114 Glucose 94 Uric Acid 3.0 Calcium 8.2 L Phosphorus 2.2 L Magnesium 1.8 Total Bilirubin 0.4 Direct Bilirubin < 0.2 GGT 14 AST 36 ALT 15 Alkaline Phosphatase 84 Lactate Dehydrogenase 210 Total Protein 6.4 Albumin 3.1 L Globulin 3.3 Albumin/Globulin Ratio 0.9 L Triglycerides 68 Preliminary micro results at discharge 07/27/22 21:10 Blood Culture - Preliminary Blood 07/27/22 21:06 Blood Culture - Preliminary Blood Discharge Plan Patient/Caregiver Discharge Instructions Activity: increase activity as tolerated Diet: Dysphagia Level 5 Minced & Moist Foods Activity Restrictions/Additional Instructions: Follow-up with PCP in 3 to 7 days. Prescriptions: New ciprofloxacin HCl [Cipro] 500 mg tablet 500 mg PO BID Qty: 4 0RF Rx Instructions: start on 07/31/2022. Continued aripiprazole 15 mg tablet 15 mg PO QAM aripiprazole 10 mg tablet 10 mg PO .AFTERNOON lorazepam 2 mg tablet 2 mg PO TID ketoconazole 2 % cream 1 applic TOPICAL QDAY Rx Instructions: APPLY A SMALL AMOUNT TO AFFECTED AREA EVERY MORNING acetaminophen [Tylenol 8 Hour] 650 mg tablet extended release 650 mg PO Q6 PRN (Reason: fever) Qty: 30 0RF baclofen 10 mg Tablet 10 mg PO BID docusate sodium 100 mg Capsule 100 mg PO BID omeprazole 20 mg Capsule,Delayed Release(Dr/Ec) 20 mg PO QAMAC hydrocortisone 2.5 % Cream 1 applic TOPICAL QMWF Rx Instructions: Apply to face in morning every MWF zolpidem 5 mg Tablet 10 mg PO QHS haloperidol 2 mg Tablet 3 mg PO TID melatonin 10 mg Tablet 10 mg PO HS haloperidol lactate 2 mg/mL Concentrate 3 mg PO QHS PRN (Reason: Agitation) guaifenesin [Tussin Mucus-Chest Congestion] 100 mg/5 mL Liquid 100 - 200 mg PO Q4H PRN (Reason: Cough) trazodone 100 mg Tablet 200 mg PO QHS Follow Up Plan Patient Disposition: Xfer Assisted Living Facility Prognosis: Undetermined Overall status at discharge: patient is progressing back to baseline Discharge Orders: Discharge Order (Routine); Ordered 07/30/22 Ordered By: Eddie ZARAGOZA VTE Deep Vein Thrombosis/Pulmonary Embolism Present on Admission: No
[2022-07-29] MEDS: ACETAMINOPHEN 325 MG TABLET PO PRN (15:57)
[2022-07-29] MEDS: ZOLPIDEM 5 MG TABLET PO SCH (20:30)
[2022-07-29] MEDS: traZODone HCL 100 MG TABLET PO SCH (20:31)
[2022-07-29] MEDS: MELATONIN 3 MG TABLET PO SCH (20:31)
[2022-07-29] MEDS ORDERED: HALOPERIDOL LACTATE 5 MG/ML VIAL IV ONE (22:24)
[2022-07-30] MEDS: 0.9 % SODIUM CHLORIDE 10 ML SYRINGE IV SCH (06:32)
--- NOTE | 2022-07-30 07:33 | Internal Med Progress Note ---
SUBJECTIVE Subjective Patient information: Note initiated : 07/30/22 at 7:32 am Service Date, if different from initiated Date: [] Patient: Devonte Vizcaino 46 y/o M admitted on 07/28/22 for fevers. Chief Complaint: [] Interval history: History of present illness: Mr. Vizcaino is a 46 year old M Male with [place]'s disease presents to the ED with fevers tachycardia and altered mental status. Presents from [facility]. Also reported to have decreased level of consciousness. Patient has a history of traumatic brain injury and is essentially nonverbal at baseline. Also reported that his urine is malodorous. In the ED his work-up was positive for urinary tract infection with sepsis. Patient was started on IV antibiotics and IV fluids. He was tachycardic in the ED. He had a white blood cell count of 19,000. He also developed a fever of 101.6. Patient is still quite altered compared to baseline. 3 No overnight events. Patient nonverbal. Last fever was yesterday morning with max temperatures overnight at 99.5. Leukocytosis resolved. Hypophosphatemia. 07/30 Patient verbalized "breakfast" today but spoke no other words. Seems to have more energy and alertness. Review of systems: Unable to obtain as patient is nonverbal and is essentially baseline PHYSICAL EXAM General: Alert, Awake, No acute Distress Eyes/N/T: EOMI, no scleral icterus, Head/Neck: neck supple, full ROM, CV:RRR, No murmurs, Pulm: Clear b/l, no wheezing/rhonchi/rales, no respiratory distress Abd: soft, nontender, +BS x4 Ext: no clubbing/cyanosis/edema, nontender Neuro: Alert, makes eye contact, follows some simple comands, nonverbal, moves UE's spontaneously, Psychiatric: Skin: warm/dry, normal color Constitutional Vitals: Vital Signs Temp Pulse Resp BP Pulse Ox O2 Del Method 97.4 F 86 16 137/73 93 Room Air 07/30/22 03:46 07/30/22 03:46 07/30/22 03:46 07/30/22 03:46 07/30/22 03:46 07/30/22 03:46 Period Temp Pulse Resp BP Sys/Draper Pulse Ox O2 Del Method O2 Flow Rate Last 24 Hr 97.4 F-99.8 F 79-95 16-20 128-137/70-88 93-98 Room Air-Room r Intake and Output 07/29/22 07/30/22 07/30/22 19:59 03:59 11:59 Intake Total 400 Output Total 650 350 Balance -250 -350 Weight 76.521 kg Intake & Output: Intake & Output 07/29/22 07/30/22 07/30/22 19:59 03:59 11:59 Intake Total 400 Output Total 650 350 Balance -250 -350 Weight 76.521 kg Intake: Oral 400 Output: Urine Catheter Amount 650 350 Other: Meal Lunch Dinner Percent of Meal Consumed 50% Refused Feeding Ability Total Assistance Urine Appearance Cloudy Uretheral ([place]) Clear Urine Color Dark Yellow Uretheral ([place]) Yellow OBJ DATA Labs 07/29/22 05:47 07/29/22 05:47 Labs: Abnormal Lab Results 07/29/22 07/29/22 07/28/22 05:47 05:47 08:36 WBC Hgb Neut % (Auto) Lymph % (Auto) 14.8 L Lymph # (Auto) 1.48 L [place] # (Auto) Seg Neutrophils % Lymphocytes % Immature Gran # Absolute Neutrophils POC VBG pCO2 at Temp Anion Gap 7.0 L POC Glucose Calcium 8.2 L 7.9 L POC WB Ioniz Calcium Phosphorus 2.2 L 1.6 L AST 50 H Albumin 3.1 L 3.1 L Albumin/Globulin Ratio 0.9 L Urine Appearance Urine Protein Urine Ketones Urine Nitrate Urine Urobilinogen Ur Leukocyte Esterase Urine RBC Urine WBC Urine Bacteria 07/28/22 07/27/22 07/27/22 08:36 20:24 19:20 WBC 17.7 H Hgb 13.3 L Neut % (Auto) Lymph % (Auto) Lymph # (Auto) [place] # (Auto) Seg Neutrophils % 87 H Lymphocytes % 8 L Immature Gran # Absolute Neutrophils POC VBG pCO2 at Temp 40.3 L Anion Gap POC Glucose 106 H Calcium POC WB Ioniz Calcium 1.10 L Phosphorus AST Albumin Albumin/Globulin Ratio Urine Appearance Urine Protein Urine Ketones Urine Nitrate Urine Urobilinogen Ur Leukocyte Esterase Urine RBC Urine WBC Urine Bacteria 07/27/22 07/27/22 19:16 18:48 WBC 19.5 H Hgb Neut % (Auto) 80.0 H Lymph % (Auto) 12.6 L Lymph # (Auto) [place] # (Auto) 1.26 H Seg Neutrophils % Lymphocytes % Immature Gran # 0.07 H Absolute Neutrophils 15.63 H POC VBG pCO2 at Temp Anion Gap POC Glucose Calcium POC WB Ioniz Calcium Phosphorus AST Albumin Albumin/Globulin Ratio Urine Appearance Hazy A Urine Protein 100 A Urine Ketones 20 A Urine Nitrate Pos A Urine Urobilinogen 2.0 A Ur Leukocyte Esterase 250 A Urine RBC 4 H Urine WBC 125 H Urine Bacteria Many A Meds: Medications Acetaminophen (Acetaminophen 325 Mg Tablet) 650 mg PO Q6HP PRN; Protocol PRN Reason: Per Pain Protocol/Fever > 101 Last Admin: 07/29/22 15:57 Dose: 650 mg Albuterol/Ipratropium (Ipratropium/Albuterol 3 Ml Ampul.Neb) 3 ml NEB Q4HP PRN PRN Reason: Shortness Of Breath Baclofen (Baclofen 10 Mg Tablet) 10 mg PO BID [facility] Last Admin: 07/29/22 20:31 Dose: 10 mg Ceftriaxone Sodium (Ceftriaxone 1 Gm Vial) 1 gm IV Q24H [facility] Last Admin: 07/29/22 10:06 Dose: 1 gm Docusate Sodium (Docusate Sodium 100 Mg Capsule) 100 mg PO BID [facility] Last Admin: 07/29/22 20:31 Dose: 100 mg Haloperidol (Haloperidol 1 Mg Tablet) 3 mg PO TID [facility] Last Admin: 07/29/22 20:31 Dose: 3 mg Haloperidol (Haloperidol 1 Mg Tablet) 3 mg PO HSP PRN PRN Reason: Agitation Potassium Chloride 40 meq/ (Dextrose) 520 mls @ 130 mls/hr IV UD PRN PRN Reason: Potassium < 3 Magnesium Sulfate (Magnesium Sulfate) 2 gm in 50 mls @ 50 mls/hr IV UD PRN PRN Reason: Magnesium </= 1.6 Lorazepam (Lorazepam 1 Mg Tablet) 1 mg PO TID [facility] Last Admin: 07/29/22 20:31 Dose: 1 mg Melatonin (Melatonin 3 Mg Tablet) 9 mg PO HS [facility] Last Admin: 07/29/22 20:31 Dose: 9 mg Omeprazole (Omeprazole 20 Mg Capsule) 20 mg PO QAMAC [facility] Last Admin: 07/29/22 07:58 Dose: 20 mg Ondansetron HCl (Ondansetron 4 Mg/2 Ml Vial) 4 mg IV Q4HP PRN PRN Reason: Nausea And Vomiting Polyethylene Glycol (Polyethylene Glycol 3350 17 Gm Packet) 17 gm PO DAILYP PRN PRN Reason: Constipation Potassium Chloride (Potassium Chloride 20 Meq Tablet) 40 meq PO UD PRN PRN Reason: Potssium is 3-3.5 Potassium Chloride (Potassium Chloride 20 Meq Tablet) 40 meq PO UD PRN PRN Reason: Potassium < 3 Senna (Sennosides 1 Tablet) 2 tab PO DAILYP PRN PRN Reason: Constipation Sodium Chloride (0.9 % Sodium Chloride 10 Ml Syringe) 10 ml IV Q8 [facility] Last Admin: 07/30/22 06:32 Dose: 10 ml Trazodone HCl (Trazodone Hcl 100 Mg Tablet) 200 mg PO QHS [facility] Last Admin: 07/29/22 20:31 Dose: 200 mg Zolpidem Tartrate (Zolpidem 5 Mg Tablet) 10 mg PO QHS [facility] Last Admin: 07/29/22 20:30 Dose: 10 mg A/P Narrative A/P Narrative: A: *UTI( )complicated: *Sepsis(tachycardia/fever/leukocytosis): improved -fever curve improving, leukcytosis improved *Encephalopathy acute on chronic: 2/2 above *Tracie's disease: *Generalized weakness/deconditioning/debility: Patient wheelchair-bound at baseline *Hypophosphatemia: improved *Bipolar d/o: *GERD: P: -IV antibiotics, pending BC/UC -IVF d.c -monitor uop, renal fxn, trend and replace eletrolytes -[place] for accurate i/o -monitor cbc/chem -cont home baclofen/psych -PT/OT -CM for placement needs -ppx: Lovenox / home ppi Time Spent With Patient Time: Total time spent is greater than 50% in coordination of care (as documented) at patient's floor/unit and/or counseling patient: Subsequent: Total time with patient: 35 - 49 minutes QUALITY VTE Deep Vein Thrombosis/Pulmonary Embolism Present on Admission: No
[2022-07-30 08:18] LABS: ALT/SGPT 15 U/L (<40); AST/SGOT 26 U/L (<40); Albumin 2.8 gm/dL (3.2-5.2); Albumin/Globulin Ratio 0.9 (1.0-2.3); Alkaline Phosphatase 70 U/L (39-117); Bilirubin,Direct < 0.2 mg/dL (0-0.3); Bilirubin,Total 0.2 mg/dL (0.1-1.0); Blood Urea Nitrogen 9 mg/dL (6-20); Carbon Dioxide 24 mmol/L (22-30); Chloride 102 mmol/L (96-108); Globulin 3.2 gm/dL (2.2-3.7); Glomerular Filtration Rate 114; Glucose 97 mg/dL (70-105); Lactate Dehydrogenase 189 U/L (135-225); Triglycerides 77 mg/dL (<150); Uric Acid 3.2 mg/dL (2.5-8.0)
[2022-07-30] MEDS: DOCUSATE SODIUM 100 MG CAPSULE PO SCH ×2 (10:06→12:00)
[2022-07-30] MEDS: LORazepam 1 MG TABLET PO SCH (10:06)
[2022-07-30] MEDS: BACLOFEN 10 MG TABLET PO SCH (10:06)
[2022-07-30] MEDS: HALOPERIDOL 1 MG TABLET PO SCH (10:06)
[2022-07-30] MEDS: OMEPRAZOLE 20 MG CAPSULE PO SCH ×2 (10:06→12:01)
[2022-07-30] MEDS: ARIPIPRAZOLE 5 MG TABLET PO SCH ×2 (10:07→12:01)
[2022-07-30] MEDS: cefTRIAXone 1 GM VIAL IV SCH (10:07)
[2022-07-30] MEDS ORDERED: ENOXAPARIN 40 MG/0.4 ML SYRINGE SQ ONE (11:00)
[2022-07-30] MEDS ORDERED: OLANZapine 10 MG VIAL IM ONE (12:15)
== END 2022-07-30 13:20 | DRG 871 ==
LOC: ICU 18:41 → ED 18:41 → ICU 07-28 01:13 → MEDSUR 07-28 20:05
PROVIDERS: ADMIT Internal Medicine; ATTEND Internal Medicine